=== PATIENT | female | born 1960 | race Caucasian/White ===

== ENCOUNTER → 2017-10-09 | Outpatient (CLI) | payer OTHER ==
[~2017-10-09] MED LIST: AMIT25 PO; FLUT110OIA INH; Fenofibrate54 MG PO; METHI10 PO; METO50ER PO; Prilosec Otc20 MG PO
== END ==
LOC: LAB 15:58 → LAB SHORT 15:58
DX: L02.611 Cutaneous abscess of right foot (principal); L50.1 Idiopathic urticaria; L60.3 Nail dystrophy; L30.9 Dermatitis, unspecified
CPT/HCPCS: 87070; 87077; 87186; 87205

== ENCOUNTER → 2017-11-04 | Outpatient (CLI) | payer OTHER ==
[2017-11-06 11:26] LABS: HPV Genotype 16 Not Detected (NOTDET); HPV Genotype 18 Not Detected (NOTDET)
[2017-11-12 08:08] LABS: HPV High Risk Other Not Detected (NOTDET)
== END | disposition home or self-care (01) ==
LOC: LAB 16:56
PROVIDERS: Nurse Practitioner Obstetrics & Gynecology
DX: Z01.419 Encounter for gynecological examination (general) (routine) without abnormal findings (principal)
CPT/HCPCS: 87624; G0123

== ENCOUNTER → 2021-10-24 | Outpatient (CLI) | payer OTHER | END | disposition home or self-care (01) | LOC: LAB 08:15 → LAB SHORT 08:15 | DX: L08.0 Pyoderma (principal) | CPT/HCPCS: 87070 ==

== ENCOUNTER → 2022-06-23 | Outpatient (CLI) | payer OTHER ==
[~2022-06-23] MED LIST changes: +AMOX250 PO; +ATOR10 PO; +CENTRUM SILVER1 EAC2 PO; +FAMO10 PO; +LISI5 PO; +PROP50 PO
[2022-06-24 16:08] LABS: HPV 16 Negative (Negative); HPV 18 Negative (Negative); HPV OTHER HR TYPES Negative (Negative)
== END | disposition home or self-care (01) ==
LOC: LAB 17:22 → LAB SHORT 17:22
PROVIDERS: Registered Nurse
DX: Z12.4 Encounter for screening for malignant neoplasm of cervix (principal)
CPT/HCPCS: 87624; G0123

== ENCOUNTER → 2025-05-01 | Outpatient (CLI) | payer OTHER | LOC: LAB 12:19 → LAB SHORT 12:19 | DX: L08.0 Pyoderma (principal) | CPT/HCPCS: 87070; 87077; 87147; 87186; 87205 ==